=== PATIENT | female | born 1995 | race Caucasian/White ===

== ENCOUNTER 2017-06-14 10:10 | Emergency (ER) | payer OTHER | END 2017-06-14 12:16 | disposition home or self-care (01) | LOC: FTE 10:10 | DX: S60.212A Contusion of left wrist, initial encounter (principal); X58.XXXA Exposure to other specified factors, initial encounter; Y92.9 Unspecified place or not applicable | CPT/HCPCS: 29125; 99283-25 ==

== ENCOUNTER 2017-09-19 11:23 | Emergency (ER) | payer OTHER ==
[2017-09-19] MEDS: SOD CHLORIDE 0.9% 1,000 ML IV (12:18)
[2017-09-19] MEDS: KETOROLAC 30 MG INJ IV (12:19)
[2017-09-19] MEDS: DIPHENHYDRAMINE 50 MG INJ IV (12:19)
[2017-09-19] MEDS: METOCLOPRAMIDE 10 MG INJ IV (12:19)
[2017-09-19 13:07] LABS: URINE BLOOD (Dip) POC Trace-lysed (NEGATIVE); URINE GLUCOSE (Dip) POC Negative (NEGATIVE); URINE KETONES (Dip) POC Negative (NEGATIVE); URINE LEUKOCYTE EST (Dip) POC Negative (NEGATIVE); URINE NITRITE (Dip) POC Negative (NEGATIVE); URINE TOTAL PROTEIN POC Negative (NEGATIVE)
[2017-09-19 13:07] LABS: URINE PH (Dip) POC 6.5 (5.0-8.5)
== END 2017-09-19 14:04 | disposition home or self-care (01) ==
LOC: FTE 11:23
DX: G43.919 Migraine, unspecified, intractable, without status migrainosus (principal)
CPT/HCPCS: 81003; 81025; 82962; 96374; 96375; 99284-25

== ENCOUNTER 2017-10-14 16:47 | Emergency (ER) | payer MEDICAID, OTHER | END 2017-10-14 17:44 | disposition home or self-care (01) | LOC: E/R 17:44 | DX: S99.911A Unspecified injury of right ankle, initial encounter (principal); W01.0XXA Fall on same level from slipping, tripping and stumbling without subsequent striking against object, initial encounter; Y92.89 Other specified places as the place of occurrence of the external cause | CPT/HCPCS: 99283; Z7502 ==